=== PATIENT | female | born 1975 | race Caucasian/White ===

== ENCOUNTER 2018-06-04 08:48 | Day surgery (SDC) | payer MEDICAID ==
[2018-06-03 12:47] VITALS: BMI 26.9
[2018-06-04] MEDS ORDERED: Propofol 10 mg/ml Inj (20 ML) ONE ×3 (12:17→12:48)
--- NOTE | 2018-06-04 12:17 | CP.SDSHP ---
Same Day Surgery H & P - History Proposed Procedure: EGD and colonscopy Pre-Op Diagnosis: GERD, constipation - Allergies Allergies: Allergies Penicillins Allergy (Verified 06/04/18 09:13) ITCHING - Physical Exam General Appearance: no acute distress Vital Signs: Vital Signs 06/04/18 09:15 Temperature 97.3 F L Pulse Rate 78 Respiratory 16 Rate Blood Pressure 129/88 O2 Sat by Pulse 100 Oximetry Mental Status: Alert & Oriented x3 Lungs: WNL GI: WNL - {Optional Preform as Required} Abdomen: WNL - Impression Impression: GERD, constipation Pt. Evaluated Today:Candidate for Anesthesia & Procedure: Yes - Date & Time Date: 06/04/18 Time: 11:00 Short Stay Discharge - Short Stay Discharge Admitting Diagnosis/Reason for Visit: GERD//OTHER CONSTIPATION Disposition: HOME/ ROUTINE Referrals: Andres Nicole MD [Primary Care Provider] -
[2018-06-04] MEDS ORDERED: Lactated Ringer's 500 ML IV ONE ×2 (12:18→12:53)
[2018-06-04 13:32] VITALS: O2SAT 100
[2018-06-04 13:56] VITALS: BP 128/70; RESP 16
[2018-06-04 14:05] VITALS: PULSE 76; TEMP 97.7
== END 2018-06-04 14:05 | disposition home or self-care (01) ==
LOC: C.ENDO 08:48
PROVIDERS: ATTEND Internal Medicine Gastroenterology
DX: K21.9 Gastro-esophageal reflux disease without esophagitis (principal); K59.09 Other constipation; K59.00 Constipation, unspecified; K64.8 Other hemorrhoids; K29.70 Gastritis, unspecified, without bleeding
CPT/HCPCS: 43239; 45378; 84703; 88305; J2001; J2704; J7120